=== PATIENT | male | born 1940 | race Caucasian/White ===

== ENCOUNTER 2017-05-28 14:15 | Inpatient (IN) ==
--- NOTE | 2017-05-28 17:11 | Internal Med History&Physical ---
Date of Encounter: 05/29/17 Time of Encounter: 17:09 Assessment and Plan (1) Atrial fibrillation with RVR Current visit: No Status: Acute This by history) chronic (2) CAD (coronary artery disease) Current visit: No Status: Chronic By history patient does look rather fragile Qualifiers: Coronary Disease-Associated Artery/Lesion type: [place] artery [place] vs. transplanted heart: [place] heart Associated angina: without angina Qualified Code(s): I25.10 - Atherosclerotic heart disease of [place] coronary artery without angina pectoris (3) Essential hypertension Current visit: No Status: Chronic Blood pressure is well controlled. Hypertension by history (4) CHF (congestive heart failure) Current visit: No Status: Chronic Patient probably had CHF which precipitated his respiratory failure Qualifiers: Congestive heart failure type: unspecified congestive heart failure type Congestive heart failure chronicity: chronic Qualified Code(s): I50.9 - Heart failure, unspecified (5) Asthma Current visit: No Status: Chronic By history obviously complicates the pulmonary status Qualifiers: Asthma severity: mild intermittent Asthma complication type: uncomplicated Qualified Code(s): J45.20 - Mild intermittent asthma, uncomplicated (6) Pneumonia Current visit: No Status: Acute She was diagnosed with pneumonia and had been intubated in the emergency room .at [facility] Qualifiers: Pneumonia type: due to unspecified organism Laterality: bilateral Lung location: lower lobe of lung Qualified Code(s): J18.9 - Pneumonia, unspecified organism Internal Medicine - H&P: HPI Chief complaint: This 76-year-old male presented to the emergency room [facility] , chief complai Admitted From: Hospital to Hospital Transfer Plans for Post Hospital Care: Home History of present illness: Mr. Villanueva is a 76 year old male Patient has a history of COPD was found to have pneumonia. He had atrial fib with RVR and was medicated. Zones are altered anticoagulate. He has chronic kidney disease with stage III kidney failure. This did improve with diuresis. He was hypercapnic. Past Med Surg Social Fam HX - Past Medical History Medical history: arthritis, asthma, atrial fibrillation (On Xarelto), CHF ( Diastolic), COPD (Not oxygen dependent), coronary artery disease, GERD, glaucoma , hypertension, osteoporosis, other (BPH, asthma, osteoporosis, glaucoma) Psychiatric history: no psych history - Past Surgical History Surgical History: no surgical history - Social History Smoking Status: Never smoker Smokeless Tobacco Status: No Alcohol use: none Drug use: none - Family History Mother Living Status: Hx Family Cardiac Disorders: Yes Hx Family Respiratory Disorders: Yes (COPD) Internal Medicine - H&P: Meds Tamsulosin [Flomax] 0.4 mg PO QPM 05/23/16 [History] Tizanidine HCl 2 mg PO TID 05/23/16 [History] Bisacodyl [Dulcolax] 5 mg PO DAILY PRN #10 tablet 05/24/16 [Rx] Amiodarone [Cordarone] 1.5 tab PO DAILY 02/28/17 [History] Flaxseed Oil/[place] 3,6,9 [Sv Flaxseed Oil 1,300 mg Sftgl] 1 each PO DAILY [History] Pantoprazole Sodium [Protonix] 40 mg PO DAILY 05/19/17 [History] Carvedilol [Coreg] 12.5 mg PO BID #0 05/27/17 [Rx] Furosemide [Lasix] 40 mg PO DAILY #30 tablet 05/27/17 [Rx] HYDROcodone/Acet 5/325 mg [[place] 5-325 mg] 1 tab PO TID PRN #15 tab 05/27/17 [Rx ] Ipratropium/Albuterol Neb [Duoneb] 3 ml IH QIDR inhsol 05/27/17 [Rx] Rivaroxaban [Xarelto] 15 mg PO DAILY tablet 05/27/17 [Rx] Tramadol HCl [Ultram] 50 mg PO BID PRN #10 tablet 05/27/17 [Rx] 3 Allergy/AdvReac Type Severity Reaction Status Date / Time iodine Allergy Hives Verified 05/17/17 18:18 All Systems PM: A 10-system review of systems was performed and is negative for pertinent findings except as documented above in the HPI. - Constitutional Constitutional: anorexia, lethargy, malaise, no chills, no excessive sweating, no fatigue, no fever(s), no night sweats, no weakness, no weight gain, no weight loss - EENT Eyes: no blurry vision, no change in vision, no decreased night vision, no diplopia, no discharge, no dry eye, no floaters, no irritation, no itchy eyes, no loss of peripheral vision, no loss of vision, no pain, no seeing flashes, no spots in vision, no tunnel vision, no other visual disturbances Ears: no decreased hearing, no ear discharge, no ear pain, no tinnitus, no other Nose, mouth and throat: no bleeding gums, no change in voice, no dental pain, no dry mouth, no dysphagia, no epistaxis, no facial pain, no hoarseness, no lip swelling, no mouth lesions, no mouth pain, no nasal congestion, no nasal discharge, no nasal obstruction, no neck mass, no neck pain, no nose pain, no odynophagia, no post-nasal drip, no sinus pain, no sinus pressure, no sore throat, no throat swelling, no tongue swelling - Breasts Breasts: no change in shape, no mass, no pain, no nipple discharge, no skin changes, no swelling - Cardiovascular Cardiovascular ROS IM: dyspnea, dyspnea on exertion, irregular heart rhythm, lightheadedness, no claudication, no diaphoresis, no edema, no orthopnea, no palpitations, no paroxysmal nocturnal dyspnea, no syncope - Respiratory Respiratory: dyspnea on exertion, wheezing, no cough, no dyspnea, no hemoptysis , no snoring, no stridor, no pain on inspiration, no chest congestion, no excessive phlegm production, no change in phlegm color, no pain with cough - Gastrointestinal Gastrointestinal: no abdominal pain, no belching, no bloating, no change in bowel habits, no change in stool character, no coffee ground emesis, no constipation, no cramping, no diarrhea, no dyspepsia, no dysphagia, no early satiety, no excessive flatus, no fecal incontinence, no heartburn, no hematemesis, no hematochezia, no loose stools, no melena, no nausea, no odynophagia, no tenesmus, no vomiting - Genitourinary Genitourinary ROS male: no difficulty urinating, no dysuria, no flank pain, no genital lesions, no genital pain, no hematuria, no nocturia, no penile discharge , no post void dribbling, no scrotal swelling, no testicular mass, no testicular pain, no urinary frequency, no urinary hesitancy, no urinary incontinence, no urinary urgency - Musculoskeletal Musculoskeletal ROS IM: no arthralgias, no atrophy, no back pain, no deformity, no joint swelling, no limited range of motion, no muscle cramps, no muscle weakness, no myalgias, no neck pain, no numbness, no stiffness, no tingling - Integumentary Integumentary IM: as per HPI, jaundice, no erythema, no non-healing lesions, no pruritus, no rash, no skin ulcer, no sores, no unusual bruising - Neurological Neurological ROS: confusion, no as per HPI, no abnormal gait, no abnormal hearing, no abnormal movements, no abnormal speech, no behavioral changes, no burning sensations, no convulsions, no disequilibrium, no dizziness, no focal weakness, no frequent falls, no headache(s), no lack of coordination, no loss of vision, no memory loss, no numbness, no paresthesias, no radicular pain, no restless legs, no tingling, no tremor(s), no other visual disturbances, no other - Psychiatric Psychiatric: abnormal sleep pattern, confusion, depression, no anhedonia, no anxiety, no auditory hallucinations, no behavioral changes, no change in appetite, no change in libido, no difficulty concentrating, no hallucinations, no homicidal ideation, no hopelessness, no irritability, no memory loss, no mood swings, no panic attacks, no paranoia, no suicidal ideation, no visual hallucinations, no tactile - Endocrine Endocrine IM: no cold intolerance, no deeping of the voice, no excessive sweating, no fatigue, no flushing, no heat intolerance, no polydipsia, no polyphagia, no polyuria - Hematologic/Lymphatic Hematologic/Lymphatic: no easy bleeding, no easy bruising, no lymphadenopathy - Allergic/Immunologic Allergic/Immunologic: no tongue swelling, no throat swelling, no itchy eyes, no seasonal rhinorrhea, no uticaria, no wheezing, no GI upset with certain foods, no lip swelling - Constitutional Vitals: Temp Pulse Resp BP Pulse Ox 98.4 F 77 16 115/57 95 05/28/17 15:59 05/28/17 15:59 05/28/17 15:59 05/28/17 15:59 05/28/17 15:59 - Head Head exam: Present: atraumatic, normal inspection, normocephalic - Neck Neck exam general surgery: Present: supple, trachea midline. Absent: lymphadenopathy - Respiratory Respiratory exam: Present: CTAB. Absent: accessory muscle use, rales, rhonchi, wheezes - Cardiovascular Cardiovascular exam: Present: irregular rhythm, RRR, +S1, +S2. Absent: diastolic murmur, gallop, rubs, systolic murmur - GI/Abdominal GI/Abdominal exam: Present: normal bowel sounds, soft, no peritoneal signs. Absent: distended, tenderness Internal Med - H&P Results - Labs CBC & Chem 7: 05/29/17 05:15 05/29/17 05:15 Labs: Potassium and hemoglobin are both noted. To replace the potassium. And I need to supplement his eating with higher calorie protein drink.
[2017-05-28] MEDS: Ipratropium/Albuterol Neb 3 ML IH SCH ×2 (17:57→22:33)
[2017-05-28] MEDS: tiZANidine 4 MG TABLET PO SCH (20:01)
[2017-05-28] MEDS: *HR* HYDROcodone/Acet 5/325 mg TABLET PO PRN (20:03)
[2017-05-29] MEDS: traMADol 50 MG TABLET PO PRN ×2 (00:58→18:27)
[2017-05-29 05:25] LABS: Basophils % 0.2 %; Eosinophils % 0.2 %; Hematocrit 23.6 % (37.5-50.1); Hemoglobin 7.2 g/dL (12.9-16.9); Immature Granulocytes % 0.8 % (0-4); Lymphocytes # 0.7 K/mcL (0.6-4.6); Mean Corpuscular HGB Conc 30.5 g/dL (31.6-35.5); Mean Corpuscular Hemoglobin 27.8 pg (28.0-33.3); Mean Corpuscular Volume 91.1 fL (83.0-100.0); Mean Platelet Volume 12.5 fL (9.4-12.4); Monocytes # 0.7 K/mcL (0.0-1.3); Monocytes % 13.2 %; Neutrophils # 3.8 K/mcL (1.6-8.9); Red Blood Count 2.59 M/mcL (4.19-5.50); Red Cell Distribution Width 17.6 % (11.5-14.5); Segmented Neutrophils % 71.6 %
[2017-05-29 05:41] LABS: BUN/Creatinine Ratio 17 (6-26); Blood Urea Nitrogen 19 mg/dL (8-26); Calcium 7.7 mg/dL (8.6-10.8); Carbon Dioxide 28 mEq/L (19-29); Chloride 102 mEq/L (98-109); Glucose 114 mg/dL (70-99); Osmolality,Calculated 287 (280-300); Potassium 3.4 mEq/L (3.5-4.5); Sodium 137 mEq/L (136-145); eGFR For African Americans > 60 (> 60); eGFR For Non-African Americans > 60 (> 60)
[2017-05-29 05:48] LABS: Platelet Count 96 K/mcL (140-400)
[2017-05-29] MEDS: Ipratropium/Albuterol Neb 3 ML IH SCH ×4 (05:57→22:44)
[2017-05-29] MEDS: Furosemide 40 MG TABLET PO SCH (09:33)
[2017-05-29] MEDS: *HR* Rivaroxaban 15 MG TABLET PO SCH (09:34)
[2017-05-29] MEDS: tiZANidine 4 MG TABLET PO SCH ×3 (09:34→21:09)
[2017-05-29] MEDS: *HR* HYDROcodone/Acet 5/325 mg TABLET PO PRN (09:35)
[2017-05-29] MEDS: FLAXSEED OIL PO SCH (09:36)
[2017-05-29] MEDS: *HR* Amiodarone 200 MG TABLET PO SCH (09:36)
[2017-05-29] MEDS: OMEGA PO SCH (09:36)
--- NOTE | 2017-05-29 11:32 | Internal Med Progress Note ---
Date of Encounter: 05/29/17 Time of Encounter: 11:31 - Assessment and plan (1) Atrial fibrillation with RVR Current Visit: No Status: Acute Assessment and plan: Watch rate control if necessary (2) CAD (coronary artery disease) Current Visit: No Status: Chronic Assessment and plan: Stable at the moment Qualifiers: Coronary Disease-Associated Artery/Lesion type: [place] artery [place] vs. transplanted heart: [place] heart Associated angina: without angina Qualified Code(s): I25.10 - Atherosclerotic heart disease of [place] coronary artery without angina pectoris (3) Essential hypertension Current Visit: No Status: Chronic Assessment and plan: Blood pressure is little labile (4) CHF (congestive heart failure) Current Visit: No Status: Chronic Assessment and plan: This seems to resolve for the moment I am going check a chest x-ray may Qualifiers: Congestive heart failure type: unspecified congestive heart failure type Congestive heart failure chronicity: chronic Qualified Code(s): I50.9 - Heart failure, unspecified (5) Asthma Current Visit: No Status: Chronic Assessment and plan: Stable Qualifiers: Asthma severity: mild intermittent Asthma complication type: uncomplicated Qualified Code(s): J45.20 - Mild intermittent asthma, uncomplicated (6) Pneumonia Current Visit: No Status: Acute Qualifiers: Pneumonia type: due to unspecified organism Laterality: bilateral Lung location: lower lobe of lung Qualified Code(s): J18.9 - Pneumonia, unspecified organism - Time Spent With Patient less than 15 minutes - Subjective Interval history: Patient is very weak and fatigued and appears cachectic. - Constitutional Vitals: Temp Pulse Resp BP Pulse Ox 98.2 F 72 18 161/72 98 05/29/17 07:03 05/29/17 07:03 05/29/17 07:03 05/29/17 07:03 05/29/17 07:03 General appearance: Present: cachectic, cooperative, A&O X 3 - Head Head exam: Present: atraumatic, normal inspection, normocephalic - Neck Neck exam general surgery: Present: supple, trachea midline. Absent: lymphadenopathy - Respiratory Respiratory exam: Present: decreased breath sounds, CTAB, prolonged expiratory phase. Absent: accessory muscle use, rales, rhonchi, wheezes - Cardiovascular Cardiovascular exam: Present: irregular rhythm, RRR, +S1, +S2. Absent: diastolic murmur, gallop, rubs, systolic murmur - GI/Abdominal GI/Abdominal exam: Present: normal bowel sounds, soft, no peritoneal signs. Absent: distended, tenderness Internal Medicine: Result - Labs CBC & Chem 7: 05/29/17 05:15 05/29/17 05:15 Labs: Short CBC 05/29/17 Range/Units 05:15 WBC 5.3 (4.3-11.1) K/mcL Hgb 7.2 L (12.9-16.9) g/dL Hct 23.6 L (37.5-50.1) % Plt Count 96 L (140-400) K/mcL Neutrophils # 3.8 (1.6-8.9) K/mcL BMP 05/29/17 05:15 Sodium 137 Potassium 3.4 L Chloride 102 Carbon Dioxide 28 BUN 19 Creatinine 1.10 Glucose 114 H Calcium 7.7 L We will try to correct the potassium and watch the hemoglobin Consult Discharge Plan - Plan Referrals: Alexandra Hoang MD [Primary Care Provider] -
[2017-05-29] MEDS ORDERED: Furosemide 20 MG TABLET PO STA (17:16)
[2017-05-29] MEDS: Ipratropium/Albuterol Neb 3 ML IH PRN (20:50)
[2017-05-29] MEDS ORDERED: Furosemide 40 MG/4 ML VIAL IVP ONE (21:53)
[2017-05-30] MEDS: Ipratropium/Albuterol Neb 3 ML IH SCH ×4 (05:09→23:11)
[2017-05-30] MEDS: *HR* HYDROcodone/Acet 5/325 mg TABLET PO PRN ×3 (05:26→23:10)
[2017-05-30] MEDS: FLAXSEED OIL PO SCH (08:33)
[2017-05-30] MEDS: OMEGA PO SCH (08:33)
[2017-05-30] MEDS: tiZANidine 4 MG TABLET PO SCH ×3 (08:34→20:17)
[2017-05-30] MEDS: *HR* Rivaroxaban 15 MG TABLET PO SCH (08:34)
[2017-05-30] MEDS: *HR* Amiodarone 200 MG TABLET PO SCH (08:34)
[2017-05-30] MEDS: Furosemide 40 MG TABLET PO SCH (08:34)
[2017-05-30] MEDS: traMADol 50 MG TABLET PO PRN (10:03)
--- NOTE | 2017-05-30 11:38 | Internal Med Progress Note ---
Date of Encounter: 05/30/17 Time of Encounter: 11:35 - Assessment and plan (1) Atrial fibrillation with RVR Current Visit: No Status: Acute Assessment and plan: Right now is rate is well controlled (2) CAD (coronary artery disease) Current Visit: No Status: Chronic Assessment and plan: By history Qualifiers: Coronary Disease-Associated Artery/Lesion type: [place] artery [place] vs. transplanted heart: [place] heart Associated angina: without angina Qualified Code(s): I25.10 - Atherosclerotic heart disease of [place] coronary artery without angina pectoris (3) Essential hypertension Current Visit: No Status: Chronic Assessment and plan: Blood pressures well controlled (4) CHF (congestive heart failure) Current Visit: No Status: Chronic Assessment and plan: Still mild CHF Qualifiers: Congestive heart failure type: unspecified congestive heart failure type Congestive heart failure chronicity: chronic Qualified Code(s): I50.9 - Heart failure, unspecified (5) Asthma Current Visit: No Status: Chronic Qualifiers: Asthma severity: mild intermittent Asthma complication type: uncomplicated Qualified Code(s): J45.20 - Mild intermittent asthma, uncomplicated (6) Pneumonia Current Visit: No Status: Acute Assessment and plan: Patient may still have a resolving pneumonic process Qualifiers: Pneumonia type: due to unspecified organism Laterality: bilateral Lung location: lower lobe of lung Qualified Code(s): J18.9 - Pneumonia, unspecified organism - Time Spent With Patient less than 15 minutes - Subjective Interval history: patient was short of breath last night was breathing heavily and his rate was up. His sats were good though. I did a chest x-ray which showed some mild vascular congestion. We increased the dose of Lasix and even gave him an IV dose. he states is a little better today but I checked his ejection fraction and a set of 50-55%. - Constitutional Vitals: Temp Pulse Resp BP Pulse Ox 97.5 F L 71 21 112/56 97 05/30/17 08:09 05/30/17 08:09 05/30/17 11:22 05/30/17 08:09 05/30/17 08:09 General appearance: Present: cachectic, cooperative, A&O X 3 - Head Head exam: Present: atraumatic, normal inspection, normocephalic - Neck Neck exam general surgery: Present: supple, trachea midline. Absent: lymphadenopathy - Respiratory Respiratory exam: Present: CTAB, tachypnea. Absent: accessory muscle use, rales , rhonchi, wheezes Additional comments: Patient still breathing heavy and somewhat tachypneic. Urine output was pretty good. And I will get another chest x-ray in a.m. but not sure why he was suddenly more short of breath. It may have been a mild CHF but this should be resolved with the diuresis - Cardiovascular Cardiovascular exam: Present: irregular rhythm, RRR, +S1, +S2. Absent: diastolic murmur, gallop, rubs, systolic murmur Additional comments: Patient was not tachycardic when I checked Internal Medicine: Result - Labs CBC & Chem 7: 05/29/17 05:15 05/29/17 05:15 Labs: Check lab again in the a.m. we will get the potassium. He may be somewhat Because of the anemia - Impressions Impressions Chest X-Ray 05/29/17 16:10 IMPRESSION: Stable chest with mild pulmonary edema pattern. Superimposed pneumonia cannot be excluded and follow-up radiographs recommended to ensure resolution. D/ / Lele Donald MD / Lele Donald MD Interpreting Provider: Lele Donald MD - VTE Documentation of Mechanical Device: Graduated compression elastic hosiery Consult Discharge Plan - Plan Referrals: Alexandra Hoang MD [Primary Care Provider] -
[2017-05-30] MEDS: Ipratropium/Albuterol Neb 3 ML IH PRN (19:46)
[2017-05-31] MEDS: traMADol 50 MG TABLET PO PRN (02:15)
[2017-05-31] MEDS: Ipratropium/Albuterol Neb 3 ML IH SCH ×4 (05:22→23:10)
[2017-05-31 05:48] LABS: BUN/Creatinine Ratio 22 (6-26); Blood Urea Nitrogen 25 mg/dL (8-26); Calcium 8.1 mg/dL (8.6-10.8); Carbon Dioxide 28 mEq/L (19-29); Chloride 104 mEq/L (98-109); Glucose 108 mg/dL (70-99); Osmolality,Calculated 297 (280-300); Potassium 3.6 mEq/L (3.5-4.5); Sodium 141 mEq/L (136-145); eGFR For African Americans > 60 (> 60); eGFR For Non-African Americans > 60 (> 60)
[2017-05-31] MEDS: *HR* Amiodarone 200 MG TABLET PO SCH (09:10)
[2017-05-31] MEDS: tiZANidine 4 MG TABLET PO SCH ×3 (09:11→20:30)
[2017-05-31] MEDS: Furosemide 40 MG TABLET PO SCH (09:11)
[2017-05-31] MEDS: OMEGA PO SCH (09:13)
[2017-05-31] MEDS: *HR* Rivaroxaban 15 MG TABLET PO SCH (09:13)
[2017-05-31] MEDS: FLAXSEED OIL PO SCH (09:13)
[2017-05-31] MEDS: Ipratropium/Albuterol Neb 3 ML IH PRN (09:14)
--- NOTE | 2017-05-31 10:27 | Internal Med Progress Note ---
Date of Encounter: 05/31/17 Time of Encounter: 10:25 - Assessment and plan (1) Acute diastolic (congestive) heart failure Current Visit: No Status: Acute Assessment and plan: stable at the present time he is quite deconditioned in rehab continue present meds (2) Anemia Current Visit: No Status: Acute Assessment and plan: H/H is low on anticoagulation repeat labs , Iron supplment if not on it at the present time and then followup Qualifiers: Anemia type: unspecified type Qualified Code(s): D64.9 - Anemia, unspecified (3) Atrial fibrillation with RVR Current Visit: No Status: Acute Assessment and plan: stable heart rate on Oral anticoagulation . also on Amiodrone . TSH level if not done recently (4) Atrial fibrillation Current Visit: No Status: Chronic Qualifiers: Atrial fibrillation type: persistent Qualified Code(s): I48.1 - Persistent atrial fibrillation - Subjective Interval history: complains of pain in his shoulder as well SOB on minimal exertion No nausea appetite is good no fever or chills on N/C continuos oxygen . Apprently fell down from stairs and broke his clavicle - Constitutional Vitals: Temp Pulse Resp BP Pulse Ox 97.6 F 81 16 132/79 96 05/31/17 07:01 05/31/17 07:01 05/31/17 07:01 05/31/17 07:01 05/31/17 07:01 General appearance: Present: cachectic, cooperative, A&O X 3, pleasant Exam: somewhat SOB during conversation not synotic - Head Head exam: Present: atraumatic - Eye Eye exam: Present: EOMI, PERRL - Neck Neck exam general surgery: Present: supple. Absent: tenderness, nuchal rigidity - Respiratory Additional comments: decrease air enter both side mild rales no wheeze noted in the bases Local brusie noted on the right side Anterior chest Local tenderness - Cardiovascular Cardiovascular exam: Present: irregular rhythm, +S1, +S2. Absent: JVD Additional comments: soft systolic mummer appreciated at the apex no radiation bradycardiac - GI/Abdominal GI/Abdominal exam: Present: normal bowel sounds, soft. Absent: guarding, rebound, rigid - Extremities Exam Extremities exam: Present: full ROM, pedal edema Additional comments: left leg mild edema + right side negative / Apprently this is old edema he had . NO calf tenderness Already on anticoagulation - Neurological Exam Neurological exam: Present: oriented X3, no focal deficits, strengths equal and symetr throughout. Absent: facial droop, speech deficit Additional comments: some what decrease strength all over no focal debit Internal Medicine: Result - Labs CBC & Chem 7: 05/29/17 05:15 05/31/17 05:10 Labs: BMP 05/31/17 05:10 Sodium 141 Potassium 3.6 Chloride 104 Carbon Dioxide 28 BUN 25 Creatinine 1.15 Glucose 108 H Calcium 8.1 L - Impressions Impressions Chest X-Ray 05/31/17 11:34 IMPRESSION: Increasing ground-glass opacities diffusely in the right lung and in the perihilar left lung with increased volume of a small left pleural effusion. Pattern may represent progressive pulmonary edema. Continued follow-up advised. D/ / Javi Pimentel MD / Javi Pimentel MD Interpreting Provider: Javi Pimentel MD - VTE Documentation of Mechanical Device: Graduated compression elastic hosiery Consult Discharge Plan - Plan Referrals: Alexandra Hoang MD [Primary Care Provider] -
[2017-05-31] MEDS: *HR* HYDROcodone/Acet 5/325 mg TABLET PO PRN (11:05)
[2017-05-31 12:22] LABS: Basophils % 0.2 %; Hematocrit 25.3 % (37.5-50.1); Hemoglobin 7.8 g/dL (12.9-16.9); Immature Granulocytes % 0.8 % (0-4); Lymphocytes # 0.5 K/mcL (0.6-4.6); Lymphocytes % 7.6 %; Mean Corpuscular HGB Conc 30.8 g/dL (31.6-35.5); Mean Corpuscular Hemoglobin 28.7 pg (28.0-33.3); Mean Platelet Volume 11.9 fL (9.4-12.4); Monocytes # 0.8 K/mcL (0.0-1.3); Monocytes % 12.9 %; Neutrophils # 4.6 K/mcL (1.6-8.9); Platelet Count 109 K/mcL (140-400); Red Blood Count 2.72 M/mcL (4.19-5.50); Red Cell Distribution Width 18.4 % (11.5-14.5); Segmented Neutrophils % 78.5 %
[2017-05-31] MEDS ORDERED: Fluticasone Propionate Nasal 50 MCG/SPRAY BOTTLE NS PRN (13:33)
[2017-05-31] MEDS ORDERED: Saline Nasal Spray 44 ML BOTTLE NS PRN (13:43)
[2017-05-31] MEDS: traMADol 50 MG TABLET PO SCH ×2 (16:27→20:31)
[2017-05-31] MEDS: *HR* LORazepam 0.5 MG TABLET PO PRN (20:30)
[2017-06-01] MEDS: *HR* HYDROcodone/Acet 5/325 mg TABLET PO PRN ×2 (02:39→20:21)
[2017-06-01] MEDS: Ipratropium/Albuterol Neb 3 ML IH PRN (02:39)
[2017-06-01] MEDS: Ipratropium/Albuterol Neb 3 ML IH SCH ×4 (05:51→23:12)
--- NOTE | 2017-06-01 08:53 | Internal Med Progress Note ---
Date of Encounter: 06/01/17 Time of Encounter: 08:50 - Assessment and plan (1) Acute diastolic (congestive) heart failure Current Visit: No Status: Chronic Assessment and plan: stable CXR has multiple opacities which as before mild pleural effusion on IV lasix etc conitnue present meds may give one extra dose today One dose of IV lasix given , followup renal profile tomorrow (2) Anemia Current Visit: No Status: Acute Assessment and plan: h/h stable on iron at the present time Qualifiers: Anemia type: unspecified type Qualified Code(s): D64.9 - Anemia, unspecified (3) Atrial fibrillation with RVR Current Visit: No Status: Acute Assessment and plan: stable heart rate on oral anticoagulation (4) Atrial fibrillation Current Visit: No Status: Chronic Assessment and plan: Heart rate is stable on amiodrone Qualifiers: Atrial fibrillation type: persistent Qualified Code(s): I48.1 - Persistent atrial fibrillation - Subjective Interval history: He was some what anxious and had restless night complains of come congestion and cough SOB is baseline afebrile , pain is well controlled No evidence of rib fractures on 4 liters at the present time . Nasal congestion has improved yesterday morning he was able to getup and be in the chair - Constitutional Vitals: Temp Pulse Resp BP Pulse Ox 98.2 F 100 18 137/70 93 06/01/17 07:04 06/01/17 07:04 06/01/17 07:04 06/01/17 07:04 06/01/17 07:04 General appearance: Present: cachectic, cooperative, A&O X 3, pleasant Exam: using oxygen he was sleeping comfortable - Head Head exam: Present: atraumatic - Neck Neck exam general surgery: Present: full ROM, supple. Absent: tenderness, nuchal rigidity - Respiratory Respiratory exam: Present: decreased breath sounds, rales. Absent: respiratory distress, rhonchi, stridor Additional comments: Air entry is equal in both side left side some what less air in the bases some congestion and rales both sides no wheeze - Cardiovascular Cardiovascular exam: Present: irregular rhythm, +S1, +S2. Absent: gallop, JVD - GI/Abdominal GI/Abdominal exam: Present: normal bowel sounds, soft. Absent: distended, rebound, rigid - Expanded Upper Extremities Exam General: Present: abrasion (pedal edema as beofre right side normal ) Internal Medicine: Result - Labs CBC & Chem 7: 05/31/17 12:15 05/31/17 05:10 Labs: Short CBC 05/31/17 Range/Units 12:15 WBC 5.9 (4.3-11.1) K/mcL Hgb 7.8 L (12.9-16.9) g/dL Hct 25.3 L (37.5-50.1) % Plt Count 109 L (140-400) K/mcL Neutrophils # 4.6 (1.6-8.9) K/mcL - Impressions Impressions Ribs X-Ray 05/31/17 10:31 IMPRESSION: No evidence of acute right-sided rib fracture. Patchy airspace opacities bilaterally, likely related to pulmonary edema versus pneumonia. D/ / Jorje Alba MD / Jorje Alba MD Interpreting Provider: Jorje Alba MD - VTE Documentation of Mechanical Device: Graduated compression elastic hosiery Consult Discharge Plan - Plan Referrals: Alexandra Hoang MD [Primary Care Provider] -
[2017-06-01] MEDS ORDERED: Furosemide 20 MG/2 ML VIAL IVP ONE (08:57)
[2017-06-01] MEDS: *HR* Rivaroxaban 15 MG TABLET PO SCH (09:26)
[2017-06-01] MEDS: Furosemide 40 MG TABLET PO SCH (09:26)
[2017-06-01] MEDS: *HR* Amiodarone 200 MG TABLET PO SCH (09:26)
[2017-06-01] MEDS: tiZANidine 4 MG TABLET PO SCH ×3 (09:26→20:23)
[2017-06-01] MEDS: traMADol 50 MG TABLET PO SCH (09:27)
[2017-06-01] MEDS: FLAXSEED OIL PO SCH (09:28)
[2017-06-01] MEDS: OMEGA PO SCH (09:28)
[2017-06-01 17:22] LABS: ABG Base Excess 4 mEq/L (-2 to 3); ABG HCO3 29 mEq/L (21-27); ABG Oxygen Saturation 96 % (95-98); ABG PCO2 44 mmHg (35-45); ABG PH 7.43 pH Units (7.32-7.45); ABG PO2 80 mmHg (85-104); ABG TCO2 30 mEq/L (20-26)
[2017-06-02] MEDS: Ipratropium/Albuterol Neb 3 ML IH SCH ×4 (05:11→21:29)
[2017-06-02] MEDS: *HR* HYDROcodone/Acet 5/325 mg TABLET PO PRN ×2 (05:30→15:55)
[2017-06-02 06:12] LABS: Basophils % 0.2 %; Hematocrit 28.7 % (37.5-50.1); Hemoglobin 8.6 g/dL (12.9-16.9); Immature Granulocytes % 1.2 % (0-4); Lymphocytes # 0.6 K/mcL (0.6-4.6); Mean Corpuscular Hemoglobin 28.3 pg (28.0-33.3); Mean Corpuscular Volume 94.4 fL (83.0-100.0); Mean Platelet Volume 12.2 fL (9.4-12.4); Monocytes # 0.6 K/mcL (0.0-1.3); Monocytes % 10.7 %; Neutrophils # 4.5 K/mcL (1.6-8.9); Platelet Count 115 K/mcL (140-400); Red Blood Count 3.04 M/mcL (4.19-5.50); Red Cell Distribution Width 18.6 % (11.5-14.5); Segmented Neutrophils % 77.9 %
[2017-06-02 06:26] LABS: BUN/Creatinine Ratio 22 (6-26); Blood Urea Nitrogen 24 mg/dL (8-26); Calcium 8.6 mg/dL (8.6-10.8); Carbon Dioxide 26 mEq/L (19-29); Chloride 106 mEq/L (98-109); Glucose 129 mg/dL (70-99); Osmolality,Calculated 302 (280-300); Potassium 4.1 mEq/L (3.5-4.5); Sodium 143 mEq/L (136-145); eGFR For African Americans > 60 (> 60); eGFR For Non-African Americans > 60 (> 60)
[2017-06-02] MEDS: tiZANidine 4 MG TABLET PO SCH ×3 (08:05→21:28)
[2017-06-02] MEDS: *HR* Amiodarone 200 MG TABLET PO SCH (08:06)
[2017-06-02] MEDS: OMEGA PO SCH (08:07)
[2017-06-02] MEDS: Furosemide 40 MG TABLET PO SCH (08:07)
[2017-06-02] MEDS: *HR* Rivaroxaban 15 MG TABLET PO SCH (08:07)
[2017-06-02] MEDS: FLAXSEED OIL PO SCH (08:07)
--- NOTE | 2017-06-02 13:44 | Internal Med Progress Note ---
Date of Encounter: 06/10/17 Time of Encounter: 13:42 - Assessment and plan (1) Essential hypertension Status: Chronic Assessment and plan: Control (2) Atrial fibrillation with RVR Status: Acute Assessment and plan: There is rates controlled his EKG showed he was in sinus (3) CAD (coronary artery disease) Status: Chronic Assessment and plan: History Qualifiers: Coronary Disease-Associated Artery/Lesion type: [place] artery [place] vs. transplanted heart: [place] heart Associated angina: without angina Qualified Code(s): I25.10 - Atherosclerotic heart disease of [place] coronary artery without angina pectoris (4) CHF (congestive heart failure) Status: Chronic Assessment and plan: By history he uses in his CHF easily that is why I am suspicious of valvular heart disease Qualifiers: Congestive heart failure type: diastolic Congestive heart failure chronicity: chronic Qualified Code(s): I50.32 - Chronic diastolic (congestive ) heart failure (5) Asthma Status: Chronic Assessment and plan: History Qualifiers: Asthma severity: severe Asthma complication type: uncomplicated Qualified Code(s): J45.909 - Unspecified asthma, uncomplicated (6) Pneumonia Status: Acute Assessment and plan: Lab follow-up chest x-ray in the [facility] little bit possibly in the last Qualifiers: Pneumonia type: due to unspecified organism Laterality: bilateral Lung location: lower lobe of lung Qualified Code(s): J18.9 - Pneumonia, unspecified organism - Time Spent With Patient less than 15 minutes - Subjective Interval history: Patient was so walking down the [place] past the nerve nurses station when his legs just suddenly gave out be sat down he was momentarily unresponsive. There is started talking again the [place] withdrawal he said he was just tired and his legs felt numb vital signs were stable and I am not so sure why he is so weak that his ejection fraction was pretty good and they did not note any valves but they did not see them very well visualized in the echo. He is very fragile cachectic appearing and is sleeping currently and is really not a good candidate for rehabilitation. We decided to just do in OT session in the morning and a PT session the afternoon and see how he does. - Constitutional Vitals: Temp Pulse Resp BP Pulse Ox 98.1 F 71 16 116/69 97 06/02/17 11:00 06/02/17 11:00 06/02/17 11:00 06/02/17 11:00 06/02/17 11:00 General appearance: Present: cachectic, cooperative, A&O X 3, pleasant - Head Head exam: Present: atraumatic, normal inspection, normocephalic - Neck Neck exam general surgery: Present: supple, trachea midline. Absent: lymphadenopathy Internal Medicine: Result - Labs CBC & Chem 7: 06/02/17 05:15 06/02/17 05:15 Labs: Short CBC 06/02/17 Range/Units 05:15 WBC 5.8 (4.3-11.1) K/mcL Hgb 8.6 L (12.9-16.9) g/dL Hct 28.7 L (37.5-50.1) % Plt Count 115 L (140-400) K/mcL Neutrophils # 4.5 (1.6-8.9) K/mcL BMP 06/02/17 05:15 Sodium 143 Potassium 4.1 Chloride 106 Carbon Dioxide 26 BUN 24 Creatinine 1.08 Glucose 129 H Calcium 8.6 - ABG Interpretation ABG results: ABG ABG pH 7.43 pH Units (7.32-7.45) 06/01/17 17:19 ABG pCO2 44 mmHg (35-45) 06/01/17 17:19 ABG pO2 80 mmHg (85-104) L 06/01/17 17:19 ABG O2 Saturation 96 % (95-98) 06/01/17 17:19 - VTE Documentation of Mechanical Device: Graduated compression elastic hosiery Consult Discharge Plan - Plan Referrals: Alexandra Hoang MD [Primary Care Provider] -
--- NOTE | 2017-06-02 15:43 | Electrocardiograph Report ---
[address] [address] Test Date: 2017-06-02 Pat Name: Keena Villanueva Department: 2001 Room: 115 Gender: M Research Director: : 1940 Requested By: Tj Toth Order Number: [id number] Reading MD: Fabio Mix Measurements Intervals [place] Rate: 72 P: 32 OK: 200 QRS: -64 QRSD: 164 T: 26 QT: 472 QTc: 496 Interpretive Statements SINUS RHYTHM INTRAVENTRICULAR CONDUCTION DELAY Electronically Signed On 06-02-2017 15:41:36 EST by Fabio Mix
[2017-06-02] MEDS: *HR* LORazepam 0.5 MG TABLET PO PRN (21:29)
[2017-06-02] MEDS: traMADol 50 MG TABLET PO PRN (21:30)
[2017-06-03] MEDS: Ipratropium/Albuterol Neb 3 ML IH SCH ×4 (05:02→21:23)
[2017-06-03] MEDS: *HR* HYDROcodone/Acet 5/325 mg TABLET PO PRN ×2 (05:02→14:18)
[2017-06-03] MEDS: *HR* Rivaroxaban 15 MG TABLET PO SCH (08:24)
[2017-06-03] MEDS: *HR* Amiodarone 200 MG TABLET PO SCH (08:24)
[2017-06-03] MEDS: Furosemide 40 MG TABLET PO SCH (08:24)
[2017-06-03] MEDS: tiZANidine 4 MG TABLET PO SCH ×3 (08:25→21:24)
[2017-06-03] MEDS: traMADol 50 MG TABLET PO PRN (08:33)
--- NOTE | 2017-06-03 12:28 | Internal Med Progress Note ---
Date of Encounter: 06/10/17 Time of Encounter: 15:07 - Assessment and plan (1) Atrial fibrillation with RVR Status: Acute Assessment and plan: Patient really concerns me. (2) CAD (coronary artery disease) Status: Chronic Assessment and plan: He is sleeping and now all the time. Vital signs are currently holding but short of breath etc. Qualifiers: Coronary Disease-Associated Artery/Lesion type: [place] artery [place] vs. transplanted heart: [place] heart Associated angina: without angina Qualified Code(s): I25.10 - Atherosclerotic heart disease of [place] coronary artery without angina pectoris (3) Essential hypertension Status: Chronic Assessment and plan: History not a problem at this time (4) CHF (congestive heart failure) Status: Chronic Assessment and plan: Probably has a small component of CHF and diastolic difficulties Qualifiers: Congestive heart failure type: diastolic Congestive heart failure chronicity: chronic Qualified Code(s): I50.32 - Chronic diastolic (congestive ) heart failure (5) Asthma Status: Chronic Assessment and plan: Fairly severe asthma with shortness of breath. Qualifiers: Asthma severity: severe Asthma complication type: uncomplicated Qualified Code(s): J45.909 - Unspecified asthma, uncomplicated (6) Pneumonia Status: Acute Qualifiers: Pneumonia type: due to unspecified organism Laterality: bilateral Lung location: lower lobe of lung Qualified Code(s): J18.9 - Pneumonia, unspecified organism - Time Spent With Patient less than 15 minutes - Subjective Interval history: Patient was so walking down the [place] past the nerve nurses station when his legs just suddenly gave out be sat down he was momentarily unresponsive. There is started talking again the [place] withdrawal he said he was just tired and his legs felt numb vital signs were stable and I am not so sure why he is so weak that his ejection fraction was pretty good and they did not note any valves but they did not see them very well visualized in the echo. He is very fragile cachectic appearing and is sleeping currently and is really not a good candidate for rehabilitation. We decided to just do in OT session in the morning and a PT session the afternoon and see how he does. - Constitutional Vitals: Temp Pulse Resp BP Pulse Ox 97.6 F 80 16 113/65 96 06/03/17 11:08 06/03/17 11:08 06/03/17 11:08 06/03/17 11:08 06/03/17 11:08 General appearance: Present: cachectic, cooperative, A&O X 3, pleasant - Head Head exam: Present: atraumatic, normal inspection, normocephalic - Neck Neck exam general surgery: Present: supple, trachea midline. Absent: lymphadenopathy - Respiratory Respiratory exam: Present: CTAB. Absent: accessory muscle use, rales, rhonchi, wheezes - Cardiovascular Cardiovascular exam: Present: RRR, +S1, +S2. Absent: diastolic murmur, gallop, rubs, systolic murmur Internal Medicine: Result - Labs CBC & Chem 7: 06/02/17 05:15 06/02/17 05:15 Labs: Lab is stable - ABG Interpretation ABG results: ABG ABG pH 7.43 pH Units (7.32-7.45) 06/01/17 17:19 ABG pCO2 44 mmHg (35-45) 06/01/17 17:19 ABG pO2 80 mmHg (85-104) L 06/01/17 17:19 ABG O2 Saturation 96 % (95-98) 06/01/17 17:19 - Impressions Impressions Chest X-Ray 06/03/17 06:00 IMPRESSION: 1. No significant change. 2. Patchy opacification within the lungs bilaterally. 3. Likely small left pleural effusion. D/ / Hudson Toledo MD / Hudson Toledo MD Interpreting Provider: Hudson Toledo MD Shoulder X-Ray 06/03/17 09:34 IMPRESSION: 1. Stable alignment of a nondisplaced angulated distal right clavicular fracture. There is slightly increased osteolysis at the fracture site without significant callus formation. 2. Otherwise limited exam of the glenohumeral joint due to limitations in range of motion. 3. Slightly increased patchy airspace opacities within the right lung. Recommend correlation with dedicated chest x-ray performed at the same time. Pneumonia is not excluded. D/ / 06/03/2017 11:05:41 Allison Aldana MD / Jordyn Thompson Interpreting Provider: Allison Aldana MD - VTE Documentation of Mechanical Device: Graduated compression elastic hosiery Consult Discharge Plan - Plan Referrals: Alexandra Hoang MD [Primary Care Provider] -
[2017-06-03] MEDS: *HR* LORazepam 0.5 MG TABLET PO PRN ×2 (15:16→21:24)
[2017-06-04] MEDS: Ipratropium/Albuterol Neb 3 ML IH SCH ×2 (05:27→09:21)
[2017-06-04] MEDS: *HR* HYDROcodone/Acet 5/325 mg TABLET PO PRN (05:27)
[2017-06-04 07:38] VITALS: BP 167/64
[2017-06-04] MEDS: *HR* Amiodarone 200 MG TABLET PO SCH (10:21)
[2017-06-04] MEDS: *HR* Rivaroxaban 15 MG TABLET PO SCH (10:21)
[2017-06-04] MEDS: Furosemide 40 MG TABLET PO SCH (10:21)
[2017-06-04] MEDS: tiZANidine 4 MG TABLET PO SCH ×2 (10:21→13:58)
[2017-06-04] MEDS: *HR* LORazepam 0.5 MG TABLET PO PRN (10:27)
--- NOTE | 2017-06-04 14:19 | Discharge Summary ---
Date of Encounter: 06/10/17 Time of Encounter: 14:17 - Discharge Diagnosis (1) Atrial fibrillation with RVR Priority: Secondary Status: Acute (2) CAD (coronary artery disease) Priority: Secondary Status: Chronic Qualifiers: Coronary Disease-Associated Artery/Lesion type: [place] artery [place] vs. transplanted heart: [place] heart Associated angina: without angina Qualified Code(s): I25.10 - Atherosclerotic heart disease of [place] coronary artery without angina pectoris (3) Essential hypertension Priority: Secondary Status: Chronic (4) CHF (congestive heart failure) Priority: Primary Status: Chronic Qualifiers: Congestive heart failure type: diastolic Congestive heart failure chronicity: chronic Qualified Code(s): I50.32 - Chronic diastolic (congestive ) heart failure (5) Asthma Priority: Secondary Status: Chronic Qualifiers: Asthma severity: severe Asthma complication type: uncomplicated Qualified Code(s): J45.909 - Unspecified asthma, uncomplicated (6) Pneumonia Priority: Primary Status: Acute Qualifiers: Pneumonia type: due to unspecified organism Laterality: bilateral Lung location: lower lobe of lung Qualified Code(s): J18.9 - Pneumonia, unspecified organism (7) Confusion state Priority: Primary Status: Acute - Discharge Medications Home Medications: Tamsulosin [Flomax] 0.4 mg PO QPM 05/23/16 [History] Tizanidine HCl 2 mg PO TID 05/23/16 [History] Bisacodyl [Dulcolax] 5 mg PO DAILY PRN #10 tablet 05/24/16 [Rx] Amiodarone [Cordarone] 1.5 tab PO DAILY 02/28/17 [History] Flaxseed Oil/[place] 3,6,9 [Sv Flaxseed Oil 1,300 mg Sftgl] 1 each PO DAILY [History] Pantoprazole Sodium [Protonix] 40 mg PO DAILY 05/19/17 [History] Carvedilol [Coreg] 12.5 mg PO BID #0 05/27/17 [Rx] Furosemide [Lasix] 40 mg PO DAILY #30 tablet 05/27/17 [Rx] HYDROcodone/Acet 5/325 mg [[place] 5-325 mg] 1 tab PO TID PRN #15 tab 05/27/17 [Rx ] Ipratropium/Albuterol Neb [Duoneb] 3 ml IH QIDR inhsol 05/27/17 [Rx] Rivaroxaban [Xarelto] 15 mg PO DAILY tablet 05/27/17 [Rx] Tramadol HCl [Ultram] 50 mg PO BID PRN #10 tablet 05/27/17 [Rx] Allergies/Adverse Reactions: 3 Allergy/AdvReac Type Severity Reaction Status Date / Time iodine Allergy Hives Verified 05/17/17 18:18 Procedures/tests Complete & Pending: Procedures Performed prior 72 hours Category Date Time Status ECG 12 lead ECG [ECG] Stat Y 06/02/17 11:49 Completed EKG [ECG 12 lead ECG] [ECG] Stat Y 06/03/17 15:06 Stop Req Date of admission: 05/28/17 15:38 Primary care physician: Alexandra Hoang MD Consults: 05/28/17 16:09 Consult to Occupational Therapy [CONS] Routine Comment: eval Reason for Consult: eval Consult to Physical Therapy [CONS] Routine Comment: eval Reason for Consult: eval Consult to Recreational Therapy [CONS] Routine Comment: Consult to Gis Programmer [CONS] Routine Reason for SW Consult: d/c planning 05/28/17 17:53 Consult to Nutrition [CONS] Routine Comment: Consulting Provider: NUTRITION Reason for Dietary Consult: Other 05/28/17 18:34 Consult to Wound Care [CONS] Routine Reason for Consult: wound right foot Call Completed: Yes Discharging clinician: Tj Toth Anticipated date of discharge: 06/04/17 - Patient Status Disposition: Admitted As Inpatient Condition: Serious Functional capacity at discharge: bed bound Overall status at discharge: patient is not back to baseline - Discharge Instructions Follow Up With: Alexandra Hoang MD [Primary Care Provider] - - Diet and Activity Activity: wear oxygen at all times, other Diet: other Interval History: He was brought here after being intubated placed in the ICU for respiratory failure due to CHF and pneumonia. Hospital course: Mr. Villanueva is a 76 year old male - Time Spent with Patient Total time spent providing and/or coordinating discharge services: Less than 30 minutes - Constitutional Vitals: Temp Pulse Resp BP Pulse Ox 98.0 F 95 25 167/64 92 06/04/17 07:35 06/04/17 07:35 06/04/17 09:24 06/04/17 07:35 06/04/17 07:35 General appearance: Present: cachectic, cooperative, A&O X 3, pleasant - Head Head exam: Present: normal inspection - Neck Neck exam general surgery: Present: supple, trachea midline. Absent: lymphadenopathy - Respiratory Respiratory exam: Present: decreased breath sounds, CTAB, prolonged expiratory phase. Absent: accessory muscle use, rales, rhonchi, wheezes - Cardiovascular Cardiovascular exam: Present: RRR, +S1, +S2. Absent: diastolic murmur, gallop, rubs, systolic murmur - GI/Abdominal GI/Abdominal exam: Present: normal bowel sounds, soft, no peritoneal signs. Absent: distended, tenderness - VTE Documentation of Mechanical Device: Graduated compression elastic hosiery
[2017-06-04 21:45] LABS: ABG Base Excess 5 mEq/L (-2 to 3); ABG HCO3 29 mEq/L (21-27); ABG Oxygen Saturation 98 % (95-98); ABG PCO2 38 mmHg (35-45); ABG PH 7.48 pH Units (7.32-7.45); ABG PO2 100 mmHg (85-104); ABG TCO2 30 mEq/L (20-26)
== END 2017-06-04 15:41 | disposition short-term general hospital (02) | DRG 945 ==
LOC: INPGRE 15:38
PROVIDERS: ADMIT Internal Medicine; ATTEND Internal Medicine